=== PATIENT | female | born 1995 | race African-American/Black ===

== ENCOUNTER 2016-12-11 18:41 | Emergency (ER) | payer OTHER ==
[~2016-12-11] VITALS: Ht 162.6 cm; Wt 55.0 kg
[~2016-12-11 18:41] MED LIST: ACYC-1 PO; NAPR-576 PO
[2016-12-11 18:42] VITALS: BP 136/81; PULSE 72; RESP 16; TEMP 98.7; O2SAT 100
[2016-12-11] MEDS ORDERED: DICL75TA PO (19:19)
[2016-12-11] MEDS ORDERED: CYCL1TAB29 PO (19:19)
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
[2016-12-11] MEDS ORDERED: CYCLOBENZAPRINE HCL 10 MG TAB PO ONE (19:30)
[2016-12-11] MEDS ORDERED: NAPROXEN 500 MG TAB PO ONE (19:30)
== END 2016-12-11 19:44 | disposition home or self-care (01) ==
LOC: NEPD 18:41
DX: M54.2 Cervicalgia (principal); R51 Headache; V43.52XA Car driver injured in collision with other type car in traffic accident, initial encounter
CPT/HCPCS: 99284